=== PATIENT | male | born 1995 | race African-American/Black ===

== ENCOUNTER 2017-01-25 19:24 | Emergency (ER) | payer BC ==
[~2017-01-25] VITALS: Ht 182.9 cm; Wt 70.3 kg
[2017-01-25 19:32] VITALS: BP 129/78
--- NOTE | 2017-01-25 19:37 | NUR ---
DR AMEZQUITA AT BEDSIDE FOR EVAL.
[2017-01-25] MEDS ORDERED: predniSONE 20 MG TABLET ONE (19:44)
[2017-01-25] MEDS ORDERED: predniSONE 20 MG TABLET PO ONE (20:00)
== END 2017-01-25 19:53 | disposition home or self-care (01) ==
LOC: ER 19:27
DX: L50.9 Urticaria, unspecified (principal); F90.9 Attention-deficit hyperactivity disorder, unspecified type
CPT/HCPCS: 99283; A4606; J7512; Z7610